=== PATIENT | male | born 1935 | race Caucasian/White ===

== ENCOUNTER 2017-05-08 13:00 | Inpatient (IN) | payer MEDICARE, OTHER ==
[~2017-05-08 13:00] MED LIST: Acetaminophen 500 MG Tab PO SCH; Famotidine 20 MG/2 ML SDV IVPUSH SCH; Ketorolac 30 MG/ML SDV IVPUSH SCH; Lactated Ringers 1,000 ML IV SCH; Ropivacaine 49.25 ML, Ketorolac 30 MG, EPINEPHrine 0.5 MG, cloNIDine 80 MCG in Sodium C... INJECT ONE; Scopolamine 1.5 MG Transdermal Patch TRDERM SCH; ceFAZolin 2 GM in Premix Bag 1 BAG IV SCH; oxyCODONE ER 20 MG TAB.ER PO SCH
[2017-06-19] MEDS ORDERED: oxyCODONE ER 20 MG TAB.ER PO SCH (06:00)
[2017-06-19] MEDS ORDERED: Famotidine 20 MG/2 ML SDV IVPUSH SCH (06:00)
[2017-06-19] MEDS ORDERED: Lactated Ringers 1,000 ML IV SCH (06:00)
[2017-06-19] MEDS ORDERED: Acetaminophen 1,000 MG in Premix Bag 1 BAG IV SCH (06:00)
[2017-06-19] MEDS ORDERED: Ropivacaine 49.25 ML, Ketorolac 30 MG, EPINEPHrine 0.5 MG, cloNIDine 80 MCG in Sodium C... INJECT ONE (06:00)
[2017-06-19] MEDS ORDERED: ceFAZolin 2 GM in Premix Bag 1 BAG IV SCH (06:00)
[2017-06-19] MEDS ORDERED: Scopolamine 1.5 MG Transdermal Patch TRDERM SCH (06:00)
[2017-06-19] MEDS ORDERED: Ketorolac 15 MG/ML SDV IVPUSH SCH (06:00)
--- NOTE | 2017-06-19 11:21 | PCM.OPNOTE ---
- General Post-Op/Procedure Note Date of Surgery/Procedure: 06/19/17 Operative Procedure(s): L TKA Post-Op Diagnosis: DJD left knee Anesthesia Technique: Moderate Sedation, Spinal Primary Surgeon: Christina Rausch Outsole Cementer: Raymond French Outsole Cementer: rTacy Thomson in mLs: 50 Condition: Good Free Text/Narrative:: tt=53 min #[id number]
[2017-06-19] MEDS ORDERED: Lidocaine 2% 5 ML SDV ONE (12:19)
[2017-06-19] MEDS ORDERED: Midazolam 1 MG/ML 2 ML SDV ONE (12:20)
[2017-06-19] MEDS ORDERED: Propofol 200 MG/20 ML SDV ONE (12:20)
[2017-06-19] MEDS ORDERED: fentaNYL 100 MCG/2 ML SDV ONE (12:20)
[2017-06-19] MEDS ORDERED: Ondansetron 4 MG/2 ML SDV ONE (12:20)
[2017-06-19] MEDS ORDERED: ePHEDrine 50 MG/ML SDV ONE (12:20)
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
[2017-06-19] MEDS ORDERED: Aluminum Hydroxide/Magnesium Hydroxide/Simethicone Susp 30 ML Cup PO PRN (14:20)
[2017-06-19] MEDS ORDERED: Ondansetron 4 MG/2 ML SDV IV PRN (14:20)
[2017-06-19] MEDS ORDERED: Bisacodyl 10 MG Supp RECTAL PRN (14:20)
[2017-06-19] MEDS ORDERED: diphenhydrAMINE 25 MG Cap PO PRN (14:20)
[2017-06-19] MEDS ORDERED: oxyCODONE 5 MG Tab PO PRN (14:21)
[2017-06-19] MEDS ORDERED: Morphine 4 MG/ML Syringe IVPUSH PRN (14:21)
[2017-06-19] MEDS ORDERED: fentaNYL 100 MCG/2 ML SDV IVPUSH PRN (14:53)
--- NOTE | 2017-06-19 15:18 | PCM.POSTAN ---
POST ANESTHESIA ASSESSMENT - MENTAL STATUS Mental Status: Alert, Oriented - VITAL SIGNS Pulse Rate: 60 SaO2: 97 Resp Rate: 14 Blood Pressure: 143/63 - RESPIRATORY Respiratory Status: Respiratory Rate WNL, Airway Patent, O2 Saturation Stable - CARDIOVASCULAR CV Status: Pulse Rate WNL, Blood Pressure Stable - GASTROINTESTINAL GI Status: No Symptoms - PAIN Pain Score: 0 - POST OP HYDRATION Hydration Status: Adequate & Stable - OBSERVATIONS Free Text/Narrative:: spinal level resolving
[2017-06-19 17:08] LABS: CHLORIDE,CL 107 mmol/L (98-110); SODIUM,NA 141 mmol/L (136-146)
[2017-06-19] MEDS ORDERED: Magnesium Sulfate/Water 4 GM in Premix Bag 1 BAG IV ONE (17:18)
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
[2017-06-19] MEDS ORDERED: Potassium Chloride 20 MEQ Tab.ER PO ONE (17:55)
[2017-06-19] MEDS ORDERED: Ketorolac 30 MG/ML SDV IVPUSH SCH (18:00)
[2017-06-19] MEDS: Acetaminophen 1,000 MG in Premix Bag 1 BAG IV SCH (18:10)
--- NOTE | 2017-06-19 19:05 | OR ---
SURGEON: Christina Rausch MD DATE OF PROCEDURE: 06/19/2017 PREOPERATIVE DIAGNOSIS: Degenerative joint disease, left knee, tricompartmental. POSTOPERATIVE DIAGNOSIS: Degenerative joint disease, left knee, tricompartmental. PROCEDURE: Left total knee arthroplasty using patient-specific instrumentation. CLIN NURSE: Raymond French PA-C and Tracy Thomson PA-C. ANESTHESIA: Spinal with sedation. ESTIMATED BLOOD LOSS: 50 mL. TOURNIQUET TIME: 53 minutes. COMPLICATIONS: None. DVT PROPHYLAXIS: PAS boot and MAXIMO hose to the nonoperative leg. IMPLANTS USED: Val NexGen femoral component size G (LPS), tibial component size 7, 10 mm all- polyethylene articular surface, and 38 mm all-polyethylene patella. FINDINGS: Intraoperative findings showed severe tricompartmental degenerative changes with varus deformity. Medial release was performed to obtain good balance to the knee. Osteophyte formation was also found. BRIEF HISTORY: Danae is an 81-year-old male, who has had complaint of progressive left knee pain. He has previously undergone a right total knee arthroplasty and has done well. Due to his lack of response to conservative treatment, I did recommend surgical intervention. The risks and goals of the procedure were discussed with the patient and were documented preoperatively. He agreed to proceed. DESCRIPTION OF PROCEDURE: The patient was properly identified and brought to the operating room. The patient was transferred from the operating room cart and placed on the operating room table. Spinal anesthesia was administered by the anesthesia team. After adequate sedation was achieved, a well-padded tourniquet was applied to the lower extremity. A Downing catheter was then placed. The lower extremity was then prepped in standard fashion using ChloraPrep solution. It was then sterilely draped. A time-out was performed to ensure correct site and procedure. Preoperative antibiotics were given along with one gram of tranexamic acid IV. The surgical site had been marked preoperatively. An Esmarch was used to exsanguinate the lower extremity and the tourniquet was inflated. An incision was made centered over the anterior aspect of the knee. The subcutaneous tissues were dissected down to the level of the fascia. A medial parapatellar approach was made. A partial medial release was also performed. The knee was then brought into extension and a portion of the infrapatellar fat pad was excised. The knee was then brought into flexion. The femoral patient specific cutting block was placed. This fit anatomically. The pins were then placed. The 0 degree distal femoral cutting guide was placed over the distal femur pins. The femur was then resected using an oscillating saw. The pins were then removed and were placed into the previously placed distal drill holes in the femoral condyles. Both Rodger's and the epicondylar axis were marked with electric cautery. The cutting block was then placed. This was pinned into position in a slightly lateral and externally rotated position. This was then secured. The resection guide was used to check to make sure that the anterior femoral cortex would not be notched. The anterior condylar cut was then made. No notching of the femur was noted. This was followed by the posterior condylar, posterior chamfer, and anterior chamfer cuts. The narrow reciprocating saw was then used to cut the base of the trochlear recess and score the edges. The finishing guide was then removed and the trochlear recess cuts and remaining bone cuts were finished. The notch cutting block was then placed into position and the notch cut was made without difficulty using the reciprocating saw. This was then removed. The notch block that had been cut along with a portion of the cruciate ligaments were also resected. We then turned our attention to the tibia. The posterior cruciate ligament retractor was used to bring the tibial surface anteriorly. The patient specific tibial block was then placed. This fit anatomically. It was pinned into position. The block was then removed. The 0 degree proximal tibia cutting guide was then placed over the guide pin. This was secured with a Sharath clamp. The resection depth was checked using the resection guide. A proximal tibia cut was then made using an oscillating saw. Care was taken to protect the patellar tendon. The proximal tibia bone was then removed. The remainder of the medial and lateral meniscus were also excised. Care was taken to protect the popliteus tendon. The proximal tibia was then sized. The remainder of the osteophytes along the proximal tibia were also resected. The distal femur was elevated to expose the posterior knee. The posterior capsule was stripped off of the distal femur using a curved osteotome. The posterior osteophytes were also excised. The posterior capsule, along with the medial and lateral gutters, were then injected with the standard, preoperatively prepared, mixture consisting of clonidine, epinephrine, ropivacaine, Toradol, and saline, unless any allergies were noted preoperatively. The femoral trial was then placed. This was followed by the tibial component with a size 10 trial polyethylene. The knee was brought into full extension. Stability to varus and valgus stress was checked in extension and in flexion. There appeared to be good range of motion and stability. The knee was then brought into full extension. The patella was everted. The patella was resected to a thickness of 15 millimeters. It was then sized. Once the appropriate size was determined, the patella was prepared by placing the patella button in a slightly superior and medial position. The patella button trial was then placed and the knee was again taken through a range of motion. There was excellent patellar tracking using the no-touch technique. Alignment was checked with a drop jose. The trial components were then removed. The knee was brought into full flexion and the tibia was prepared in a standard fashion placing the tibial plate in slight external rotation with the center of the prosthesis lined up with the medial aspect of the tibial tubercle. The wound was then copiously irrigated with Pulsavac solution to remove any bony debris. The bone ends were then suctioned dry. Cement was prepared in the usual fashion on the back table. The cement was then placed onto the proximal tibia and the tibial component was placed without difficulty. This was malleted into position. Excess cement was cleared. The femoral component was cemented in a similar manner. A trial polyethylene was then placed and the knee was brought into full extension. An axial load was applied. The patella button was then cemented into place and a patella clamp was placed to hold pressure. The cement was allowed to cure. The wound was again copiously irrigated with saline solution using a Pulsavac rn prior authorization. Following this 1 g of tranexamic acid was applied to the wound topically. After the cement had adequately hardened, the patella clamp was released. The knee was again taken through a range of motion. It was determined at this time the correct thickness of polyethylene. The trial polyethylene insert was then removed. The knee was brought into flexion and the tibial tray was suctioned dry. Any excess cement was cleared from the tibial and femoral components. The knee was then brought into approximately 45 degrees of flexion. The tourniquet was deflated. No excess bleeding was noted from the posterior aspect of the knee. An additional gram of tranexamic acid was given IV. The previously determined sized polyethylene insert was then placed and locked into position without difficulty. The knee was again taken through a range of motion with no change in stability, either in flexion or extension. The fascia layer was closed with No. 1 Vicryl. The subcutaneous tissue was closed with 2-0 Vicryl and the skin was closed with a dotty. Xeroform gauze was placed over the wound and a bulky dressing was applied. The patient was then awakened from the anesthetic and transferred back to the operating cart. The patient was brought to recovery room in stable condition. All needle and sponge counts were correct. MAITE / MARCOS /[id number]
[2017-06-19] MEDS: ceFAZolin 2 GM in Premix Bag 1 BAG IV SCH ×2 (20:48→23:00)
[2017-06-19] MEDS: Docusate Sodium 100 MG Cap PO SCH (20:51)
[2017-06-19] MEDS ORDERED: Lisinopril 10 MG Tab PO SCH (21:00)
[2017-06-19] MEDS ORDERED: amLODIPine 5 MG Tab PO SCH (21:00)
[2017-06-19] MEDS ORDERED: Latanoprost 0.005% Ophth Soln 2.5 ML Bottle EYEBOTH SCH (21:00)
[2017-06-20] MEDS: Acetaminophen 1,000 MG in Premix Bag 1 BAG IV SCH (00:18)
[2017-06-20] MEDS ORDERED: ceFAZolin 2 GM in Premix Bag 1 BAG IV SCH (05:00)
[2017-06-20 05:43] LABS: CHLORIDE,CL 108 mmol/L (98-110); SODIUM,NA 140 mmol/L (136-146)
[2017-06-20] MEDS: Acetaminophen 500 MG Tab PO SCH ×2 (06:34→11:14)
[2017-06-20] MEDS ORDERED: Timolol Maleate 0.5% Ophth Soln 15 ML Bottle EYEBOTH SCH (08:00)
[2017-06-20] MEDS ORDERED: Sodium Chloride 0.9% 10 ML Syringe FLUSH PRN (08:41)
[2017-06-20] MEDS ORDERED: Sodium Chloride 0.9% 2.5 ML Syringe FLUSH PRN (08:41)
[2017-06-20 08:43] VITALS: BP 122/50
--- NOTE | 2017-06-20 08:57 | PCM.SURGPN ---
- General Info Date of Service: 06/20/17 Date of Surgery/Procedure: 06/19/17 POD#: 1 Functional Status: Reports: Pain Controlled, Tolerating Diet, Ambulating, Urinating - Review of Systems General: Reports: No Symptoms Pulmonary: Reports: No Symptoms Cardiovascular: Reports: No Symptoms Gastrointestinal: Reports: No Symptoms Genitourinary: Reports: No Symptoms Musculoskeletal: Reports: Leg Pain, Joint Pain, Joint Swelling Neurological: Reports: No Symptoms Psychiatric: Reports: No Symptoms - Patient Data Vitals - Most Recent: Last Vital Signs Temp 36.4 C 06/20/17 08:00 Pulse 58 L 06/20/17 08:00 Resp 16 06/20/17 08:00 BP 122/50 L 06/20/17 08:00 Pulse Ox 93 L 06/20/17 08:00 Weight - Most Recent: 97.522 kg I&O - Last 24 Hours: Intake & Output 06/19/17 06/20/17 06/20/17 22:59 06:59 14:59 Intake Total 2450 750 Output Total 190 550 Balance 2260 200 Lab Results Last 24 Hrs: Laboratory Results - last 24 hr 06/19/17 06/19/17 06/19/17 Range/Units 11:00 16:42 16:42 WBC 9.60 (4.0-11.0) K/uL RBC 4.02 L (4.50-5.90) M/uL Hgb 12.5 L (13.0-17.0) g/dL Hct 36.7 L (38.0-50.0) % MCV 91.3 (80.0-98.0) fL MCH 31.1 (27.0-32.0) pg MCHC 34.1 (31.0-37.0) g/dL RDW Std Deviation 44.5 (28.0-62.0) fl RDW Coeff of Antonette 14 (11.0-15.0) % Plt Count 227 (150-400) K/uL MPV 11.50 (7.40-12.00) fL Neut % (Auto) 60.5 (48.0-80.0) % Lymph % (Auto) 28.9 (16.0-40.0) % Davison % (Auto) 7.9 (0.0-15.0) % Eos % (Auto) 2.6 (0.0-7.0) % Baso % (Auto) 0.1 (0.0-1.5) % Neut # (Auto) 5.8 H (1.4-5.7) K/uL Lymph # (Auto) 2.8 H (0.6-2.4) K/uL Davison # (Auto) 0.8 (0.0-0.8) K/uL Eos # (Auto) 0.3 (0.0-0.7) K/uL Baso # (Auto) 0.0 (0.0-0.1) K/uL Nucleated RBC % 0.0 /100WBC Nucleated RBCs # 0 K/uL Sodium 141 (136-146) mmol/L Potassium 3.8 (3.5-5.1) mmol/L Chloride 107 (98-110) mmol/L Carbon Dioxide 26 (21-31) mmol/L BUN 14 (6.0-23.0) mg/dL Creatinine 0.8 (0.6-1.5) mg/dL Est Cr Clr Drug Dosing 74.66 mL/min Estimated GFR (MDRD) > 60.0 ml/min Glucose 98 (60-110) mg/dL Calcium 8.6 L (8.8-10.8) mg/dL Magnesium 1.4 L (1.5-2.3) mEq/L Total Bilirubin 0.5 (0.1-1.5) mg/dL AST 16 (5-40) IU/L ALT 11 (8-54) IU/L Alkaline Phosphatase 78 (40-150) Total Protein 6.9 (6.0-8.0) g/dL Albumin 3.4 (3.4-4.8) g/dL Globulin 3.5 (2.0-3.5) g/dL Albumin/Globulin Ratio 1.0 L (1.3-2.8) Blood Type A POSITIVE Antibody Screen NEGATIVE 06/20/17 06/20/17 Range/Units 05:19 05:19 WBC (4.0-11.0) K/uL RBC (4.50-5.90) M/uL Hgb 12.1 L (13.0-17.0) g/dL Hct 35.9 L (38.0-50.0) % MCV (80.0-98.0) fL MCH (27.0-32.0) pg MCHC (31.0-37.0) g/dL RDW Std Deviation (28.0-62.0) fl RDW Coeff of Antonette (11.0-15.0) % Plt Count (150-400) K/uL MPV (7.40-12.00) fL Neut % (Auto) (48.0-80.0) % Lymph % (Auto) (16.0-40.0) % Davison % (Auto) (0.0-15.0) % Eos % (Auto) (0.0-7.0) % Baso % (Auto) (0.0-1.5) % Neut # (Auto) (1.4-5.7) K/uL Lymph # (Auto) (0.6-2.4) K/uL Davison # (Auto) (0.0-0.8) K/uL Eos # (Auto) (0.0-0.7) K/uL Baso # (Auto) (0.0-0.1) K/uL Nucleated RBC % /100WBC Nucleated RBCs # K/uL Sodium 140 (136-146) mmol/L Potassium 4.1 (3.5-5.1) mmol/L Chloride 108 (98-110) mmol/L Carbon Dioxide 24 (21-31) mmol/L BUN 18 (6.0-23.0) mg/dL Creatinine 1.1 (0.6-1.5) mg/dL Est Cr Clr Drug Dosing 54.30 mL/min Estimated GFR (MDRD) > 60.0 ml/min Glucose 106 (60-110) mg/dL Calcium 8.4 L (8.8-10.8) mg/dL Magnesium 2.1 (1.5-2.3) mEq/L Total Bilirubin (0.1-1.5) mg/dL AST (5-40) IU/L ALT (8-54) IU/L Alkaline Phosphatase (40-150) Total Protein (6.0-8.0) g/dL Albumin (3.4-4.8) g/dL Globulin (2.0-3.5) g/dL Albumin/Globulin Ratio (1.3-2.8) Blood Type Antibody Screen Med Orders - Current: Current Medications Acetaminophen (Tylenol Extra Strength) 1,000 mg PO Q6H [facility] Last Admin: 06/20/17 06:34 Dose: 1,000 mg Al Hydroxide/Mg Hydroxide (Mag-Al Plus) 30 ml PO Q4H PRN PRN Reason: indigestion Amlodipine Besylate (Norvasc) 10 mg PO BEDTIME [facility] Last Admin: 06/19/17 21:50 Dose: 10 mg Aspirin (Aspirin) 325 mg PO BID [facility] Bisacodyl (Dulcolax) 10 mg RECTAL DAILY PRN PRN Reason: Constipation Diphenhydramine HCl (Benadryl) 25 - 50 mg PO Q6H PRN PRN Reason: Itching Docusate Sodium (Colace) 100 mg PO BID [facility] Last Admin: 06/19/17 20:51 Dose: 100 mg Fentanyl (Sublimaze) 50 mcg IVPUSH Q5M PRN PRN Reason: Pain (severe 7-10) Stop: 06/20/17 14:53 Latanoprost (Xalatan 0.005% Ophth Soln) 0 ml EYEBOTH BEDTIME [facility] Last Admin: 06/19/17 20:50 Dose: 1 drop Lisinopril (Prinivil) 20 mg PO BEDTIME [facility] Last Admin: 06/19/17 21:49 Dose: 20 mg Morphine Sulfate (Morphine) 1 - 3 mg IVPUSH Q3H PRN PRN Reason: Pain Ondansetron HCl (Zofran) 4 mg IV Q6HR PRN PRN Reason: NAUSEA/VOMITING Oxycodone HCl (Oxycodone) 5 - 10 mg PO Q4H PRN PRN Reason: Pain Scopolamine (Transderm-Scop) 1.5 mg TRDERM ONARRIVE [facility] Last Admin: 06/19/17 11:22 Dose: 1.5 mg Sodium Chloride (Saline Flush) 10 ml FLUSH ASDIRECTED PRN PRN Reason: Keep Vein Open Sodium Chloride (Saline Flush) 2.5 ml FLUSH ASDIRECTED PRN PRN Reason: Keep Vein Open Timolol Maleate (Timoptic 0.5% Ophth Soln) 0 ml EYEBOTH BRK [facility] Discontinued Medications Acetaminophen (Tylenol Extra Strength) 1,000 mg PO ONARRIVE [facility] Celecoxib (Celebrex) 200 mg PO DAILY [facility] Ephedrine Sulfate (Ephedrine Sulfate) Confirm Administered Dose 100 mg .ROUTE .STK-MED ONE Stop: 06/19/17 12:21 Famotidine (Pepcid) 40 mg IVPUSH ONARRIVE [facility] Famotidine (Pepcid) 40 mg IVPUSH ONARRIVE SHO Stop: 06/19/17 15:00 Last Admin: 06/19/17 11:24 Dose: 40 mg Fentanyl (Sublimaze) Confirm Administered Dose 200 mcg .ROUTE .STK-MED ONE Stop: 06/19/17 12:21 Cefazolin Sodium/Dextrose 2 gm (/ Premix) 50 mls @ 100 mls/hr IV ONCALL [facility] Ropivacaine 49.25 ml/Ketorolac Tromethamine 30 mg/Epinephrine HCl 0.5 mg/ Clonidine HCl 80 mcg/ Sodium Chloride 100 mls @ 50 mls/min INJECT ONETIME ONE Stop: 05/08/17 06:01 Lactated Ringer's (Ringers, Lactated) 1,000 mls @ 100 mls/hr IV ASDIRECTED [facility] Cefazolin Sodium/Dextrose 2 gm (/ Premix) 50 mls @ 100 mls/hr IV ONCALL [facility] Stop: 06/19/17 15:00 Ropivacaine 49.25 ml/Ketorolac Tromethamine 30 mg/Epinephrine HCl 0.5 mg/ Clonidine HCl 80 mcg/ Sodium Chloride 100 mls @ 50 mls/min INJECT ONETIME ONE Stop: 06/19/17 06:01 Last Admin: 06/19/17 18:23 Dose: Not Given Lactated Ringer's (Ringers, Lactated) 1,000 mls @ 100 mls/hr IV ASDIRECTED [facility] Last Admin: 06/19/17 11:21 Dose: 100 mls/hr Acetaminophen 1,000 mg/ Premix 100 mls @ 400 mls/hr IV ONCALL [facility] Last Admin: 06/19/17 11:20 Dose: 400 mls/hr Cefazolin Sodium/Dextrose 2 gm (/ Premix) 50 mls @ 100 mls/hr IV Q8HR [facility] Stop: 06/19/17 22:29 Last Admin: 06/19/17 23:00 Dose: Not Given Acetaminophen 1,000 mg/ Premix 100 mls @ 400 mls/hr IV Q6H [facility] Stop: 06/20/17 00:14 Last Admin: 06/20/17 00:18 Dose: 400 mls/hr Magnesium Sulfate 4 gm/ Premix 100 mls @ 50 mls/hr IV ONETIME ONE Stop: 06/19/17 19:17 Last Infusion: 06/19/17 20:35 Dose: Infused Cefazolin Sodium/Dextrose 2 gm (/ Premix) 50 mls @ 100 mls/hr IV Q8HR [facility] Stop: 06/20/17 05:29 Last Infusion: 06/20/17 04:50 Dose: Infused Acetaminophen (Ofirmev) Confirm Administered Dose 100 mls @ as directed IV .STK- MED ONE Stop: 06/19/17 23:31 Ketorolac Tromethamine (Toradol) 30 mg IVPUSH ONARRIVE SHO Ketorolac Tromethamine (Toradol) 15 mg IVPUSH ONARRIVE SHO Stop: 06/19/17 15:00 Last Admin: 06/19/17 11:24 Dose: 15 mg Ketorolac Tromethamine (Toradol) 30 mg IVPUSH Q6H [facility] Stop: 06/20/17 09:00 Lidocaine (Xylocaine-Mpf 2%) Confirm Administered Dose 10 ml .ROUTE .STK-MED ONE Stop: 06/19/17 12:20 Metoprolol Succinate (Toprol Xl) 25 mg PO DAILY [facility] Midazolam HCl (Versed 1 Mg/Ml) Confirm Administered Dose 2 mg .ROUTE .STK-MED ONE Stop: 06/19/17 12:21 Ondansetron HCl (Zofran) Confirm Administered Dose 4 mg .ROUTE .STK-MED ONE Stop: 06/19/17 12:21 Oxycodone HCl (Oxycontin) 20 mg PO ONARRIVE SHO Oxycodone HCl (Oxycontin) 20 mg PO ONARRIVE SHO Stop: 06/19/17 15:00 Last Admin: 06/19/17 11:25 Dose: 20 mg Potassium Chloride (Klor-Con M20) 40 meq PO ONETIME ONE Stop: 06/19/17 17:56 Last Admin: 06/19/17 18:10 Dose: 40 meq Propofol (Diprivan 20 Ml) Confirm Administered Dose 400 mg .ROUTE .STK-MED ONE Stop: 06/19/17 12:21 Scopolamine (Transderm-Scop) 1.5 mg TRDERM ONARRIVE SHO Tranexamic Acid (Cyklokapron) 4,000 mg IV SEECOMMENT [facility] Tranexamic Acid (Cyklokapron) 4,000 mg IV SEECOMMENT [facility] Stop: 06/19/17 15:00 Tranexamic Acid (Cyklokapron) Confirm Administered Dose 4,000 mg .ROUTE .CrossReader- MED ONE Stop: 06/19/17 07:19 - Exam Wound/Incisions: Dressing Dry and Intact General: Alert, Oriented HEENT: Pupils Equal, Pupils Reactive Neck: Trachea Midline Lungs: Normal Respiratory Effort Cardiovascular: Regular Rate Extremities: Other (Left anterior tibialis, extensor hallucis longus and gastrocnemius strength +5/5 bilaterally. Sensation intact. Dorsalis pedis and posterior tibial pulses +2 bilaterally. ) Neurological: No New Focal Deficit Psy/Mental Status: Alert, Normal Affect, Normal Mood - Problem List Review Problem List Initiated/Reviewed/Updated: Yes - My Orders Last 24 Hours: Active Orders 24 hr Category Date Time Status Patient Status [ADT] Routine ADT 06/19/17 11:21 Active Activity as Tolerated [RC] .Routine Care 06/19/17 14:20 Active Intake and Output [RC] Q12H Care 06/19/17 14:20 Active Neurovascular Check [RC] Q2HR Care 06/19/17 14:20 Active Notify Provider Consults [RC] ASDIRECTED Care 06/19/17 14:28 Active Notify Provider Vital Signs [RC] ASDIRECTED Care 06/19/17 14:20 Active RT Incentive Spirometry [RC] ASDIRECTED Care 06/19/17 14:20 Active Telemetry Monitoring [Cardiac Monitoring] [RC] Q8H Care 06/19/17 14:34 Active Urinary Catheter Removal [RC] Per Unit Routine Care 06/20/17 08:41 Active Vital Signs [RC] Q4H Care 06/19/17 14:20 Active Consult to Physician [CONS] Routine Cons 06/19/17 14:28 Active PT Evaluation and Treatment [CONS] Routine Cons 06/19/17 14:20 Active Knee 1V or 2V Lt [CR] Routine Exams 06/19/17 14:52 Taken BMP [BASIC METABOLIC PANEL,BMP] [CHEM] AM Lab 06/21/17 05:11 Ordered HEMOGLOBIN/HEMATOCRIT,HH [HEME] DAILY Lab 06/21/17 07:00 Ordered HEMOGLOBIN/HEMATOCRIT,HH [HEME] DAILY Lab 06/22/17 07:00 Ordered MAGNESIUM [CHEM] AM Lab 06/21/17 05:11 Ordered Acetaminophen [Tylenol Extra Strength] Med 06/20/17 06:00 Active 1,000 mg PO Q6H Alum Hydrox/Mag Hydrox/Simeth [Mag-Al Plus] Med 06/19/17 14:20 Active 30 ml PO Q4H PRN Aspirin Med 06/20/17 09:00 Active 325 mg PO BID Bisacodyl [Dulcolax] Med 06/19/17 14:20 Active 10 mg RECTAL DAILY PRN Docusate Sodium [Colace] Med 06/19/17 21:00 Active 100 mg PO BID Latanoprost [Xalatan 0.005% Ophth Soln] Med 06/19/17 21:00 Active 0 ml EYEBOTH BEDTIME Lisinopril [Prinivil] Med 06/19/17 21:00 Active 20 mg PO BEDTIME Morphine Med 06/19/17 14:21 Active 1 - 3 mg IVPUSH Q3H PRN Ondansetron [Zofran] Med 06/19/17 14:20 Active 4 mg IV Q6HR PRN Sodium Chloride 0.9% [Saline Flush] Med 06/20/17 08:41 Active 10 ml FLUSH ASDIRECTED PRN Sodium Chloride 0.9% [Saline Flush] Med 06/20/17 08:41 Active 2.5 ml FLUSH ASDIRECTED PRN Timolol Maleate [Timoptic 0.5% Ophth Soln] Med 06/20/17 08:00 Active 0 ml EYEBOTH BRK amLODIPine [Norvasc] Med 06/19/17 21:00 Active 10 mg PO BEDTIME diphenhydrAMINE [Benadryl] Med 06/19/17 14:20 Active 25 - 50 mg PO Q6H PRN fentaNYL [Sublimaze] Med 06/19/17 14:53 Active 50 mcg IVPUSH Q5M PRN oxyCODONE Med 06/19/17 14:21 Active 5 - 10 mg PO Q4H PRN Convert IV to Saline Lock [OM.PC] Routine Oth 06/20/17 08:41 Ordered Ice Therapy [OM.PC] Routine Oth 06/19/17 14:20 Ordered Medication Orders Acetaminophen (Tylenol Extra Strength) 1,000 mg PO Q6H [facility] Last Admin: 06/20/17 06:34 Dose: 1,000 mg Al Hydroxide/Mg Hydroxide (Mag-Al Plus) 30 ml PO Q4H PRN PRN Reason: indigestion Amlodipine Besylate (Norvasc) 10 mg PO BEDTIME [facility] Last Admin: 06/19/17 21:50 Dose: 10 mg Aspirin (Aspirin) 325 mg PO BID [facility] Bisacodyl (Dulcolax) 10 mg RECTAL DAILY PRN PRN Reason: Constipation Diphenhydramine HCl (Benadryl) 25 - 50 mg PO Q6H PRN PRN Reason: Itching Docusate Sodium (Colace) 100 mg PO BID [facility] Last Admin: 06/19/17 20:51 Dose: 100 mg Fentanyl (Sublimaze) 50 mcg IVPUSH Q5M PRN PRN Reason: Pain (severe 7-10) Stop: 06/20/17 14:53 Latanoprost (Xalatan 0.005% Ophth Soln) 0 ml EYEBOTH BEDTIME [facility] Last Admin: 06/19/17 20:50 Dose: 1 drop Lisinopril (Prinivil) 20 mg PO BEDTIME [facility] Last Admin: 06/19/17 21:49 Dose: 20 mg Morphine Sulfate (Morphine) 1 - 3 mg IVPUSH Q3H PRN PRN Reason: Pain Ondansetron HCl (Zofran) 4 mg IV Q6HR PRN PRN Reason: NAUSEA/VOMITING Oxycodone HCl (Oxycodone) 5 - 10 mg PO Q4H PRN PRN Reason: Pain Scopolamine (Transderm-Scop) 1.5 mg TRDERM ONARRIVE [facility] Last Admin: 06/19/17 11:22 Dose: 1.5 mg Sodium Chloride (Saline Flush) 10 ml FLUSH ASDIRECTED PRN PRN Reason: Keep Vein Open Sodium Chloride (Saline Flush) 2.5 ml FLUSH ASDIRECTED PRN PRN Reason: Keep Vein Open Timolol Maleate (Timoptic 0.5% Ophth Soln) 0 ml EYEBOTH BRK [facility] - Assessment Assessment (Free Text/Narrative):: Patient up to chair this AM. Pain well controlled. Tolerating diet. Patient did have decreased HR while sleeping last night. He was not symptomatic. Hospitalist was notified. VSS. Hgb 12.1. UO 990 mL. - Plan Plan (Free Text/Narrative):: Continue pain management. Continue PT. Discontinue duran and LRs. Encourage PO fluid intake. Start Aspirin 325 mg PO BID for DVT prophylaxis. Discharge home this afternoon.
[2017-06-20] MEDS ORDERED: Metoprolol Succinate 25 MG Tab.ER PO SCH (09:00)
[2017-06-20] MEDS ORDERED: Celecoxib 100 MG Cap PO SCH (09:00)
[2017-06-20] MEDS ORDERED: Aspirin 325 MG Tab PO SCH (09:00)
[2017-06-20] MEDS: Docusate Sodium 100 MG Cap PO SCH (09:08)
--- NOTE | 2017-06-20 09:15 | CR ---
EXAMINATION: Left knee HISTORY: Postoperative COMPARISON: 04/13/2017 TECHNIQUE: 2 views FINDINGS/IMPRESSION: Left total knee hardware is demonstrated in good position and alignment. Postope rative soft tissue changes are noted.
--- NOTE | 2017-06-20 09:29 | PCM.CONSN ---
- General Info Date of Service: 06/20/17 Admission Dx/Problem (Free Text): Admission Diagnosis/Problem Admission Diagnosis/Problem Replacement of total knee joint Subjective Update: Sitting up in the chair this morning alert and oriented. Pain is well controlled. Denies chest pain or SOB. Has no other concerns except for wanting to go home. Functional Status: Reports: Pain Controlled, Tolerating Diet, Ambulating, Urinating - Review of Systems Pulmonary: Reports: No Symptoms. Denies: Shortness of Breath, Cough, Sputum Cardiovascular: Reports: No Symptoms. Denies: Chest Pain, Edema Gastrointestinal: Reports: No Symptoms. Denies: Abdominal Pain, Nausea, Vomiting Neurological: Reports: No Symptoms. Denies: Confusion - Patient Data Vitals - Most Recent: Last Vital Signs Temp 97.5 F 06/20/17 08:00 Pulse 58 L 06/20/17 08:00 Resp 16 06/20/17 08:00 BP 122/50 L 06/20/17 08:00 Pulse Ox 93 L 06/20/17 08:00 Weight - Most Recent: 97.522 kg I&O - Last 24 Hours: Intake & Output 06/19/17 06/20/17 06/20/17 22:59 06:59 14:59 Intake Total 2450 750 Output Total 190 550 Balance 2260 200 Lab Results Last 24 Hours: Laboratory Results - last 24 hr 06/19/17 06/19/17 06/19/17 Range/Units 11:00 16:42 16:42 WBC 9.60 (4.0-11.0) K/uL RBC 4.02 L (4.50-5.90) M/uL Hgb 12.5 L (13.0-17.0) g/dL Hct 36.7 L (38.0-50.0) % MCV 91.3 (80.0-98.0) fL MCH 31.1 (27.0-32.0) pg MCHC 34.1 (31.0-37.0) g/dL RDW Std Deviation 44.5 (28.0-62.0) fl RDW Coeff of Antonette 14 (11.0-15.0) % Plt Count 227 (150-400) K/uL MPV 11.50 (7.40-12.00) fL Neut % (Auto) 60.5 (48.0-80.0) % Lymph % (Auto) 28.9 (16.0-40.0) % [place] % (Auto) 7.9 (0.0-15.0) % Eos % (Auto) 2.6 (0.0-7.0) % Baso % (Auto) 0.1 (0.0-1.5) % Neut # (Auto) 5.8 H (1.4-5.7) K/uL Lymph # (Auto) 2.8 H (0.6-2.4) K/uL [place] # (Auto) 0.8 (0.0-0.8) K/uL Eos # (Auto) 0.3 (0.0-0.7) K/uL Baso # (Auto) 0.0 (0.0-0.1) K/uL Nucleated RBC % 0.0 /100WBC Nucleated RBCs # 0 K/uL Sodium 141 (136-146) mmol/L Potassium 3.8 (3.5-5.1) mmol/L Chloride 107 (98-110) mmol/L Carbon Dioxide 26 (21-31) mmol/L BUN 14 (6.0-23.0) mg/dL Creatinine 0.8 (0.6-1.5) mg/dL Est Cr Clr Drug Dosing 74.66 mL/min Estimated GFR (MDRD) > 60.0 ml/min Glucose 98 (60-110) mg/dL Calcium 8.6 L (8.8-10.8) mg/dL Magnesium 1.4 L (1.5-2.3) mEq/L Total Bilirubin 0.5 (0.1-1.5) mg/dL AST 16 (5-40) IU/L ALT 11 (8-54) IU/L Alkaline Phosphatase 78 (40-150) Total Protein 6.9 (6.0-8.0) g/dL Albumin 3.4 (3.4-4.8) g/dL Globulin 3.5 (2.0-3.5) g/dL Albumin/Globulin Ratio 1.0 L (1.3-2.8) Blood Type A POSITIVE Antibody Screen NEGATIVE 06/20/17 06/20/17 Range/Units 05:19 05:19 WBC (4.0-11.0) K/uL RBC (4.50-5.90) M/uL Hgb 12.1 L (13.0-17.0) g/dL Hct 35.9 L (38.0-50.0) % MCV (80.0-98.0) fL MCH (27.0-32.0) pg MCHC (31.0-37.0) g/dL RDW Std Deviation (28.0-62.0) fl RDW Coeff of Antonette (11.0-15.0) % Plt Count (150-400) K/uL MPV (7.40-12.00) fL Neut % (Auto) (48.0-80.0) % Lymph % (Auto) (16.0-40.0) % [place] % (Auto) (0.0-15.0) % Eos % (Auto) (0.0-7.0) % Baso % (Auto) (0.0-1.5) % Neut # (Auto) (1.4-5.7) K/uL Lymph # (Auto) (0.6-2.4) K/uL [place] # (Auto) (0.0-0.8) K/uL Eos # (Auto) (0.0-0.7) K/uL Baso # (Auto) (0.0-0.1) K/uL Nucleated RBC % /100WBC Nucleated RBCs # K/uL Sodium 140 (136-146) mmol/L Potassium 4.1 (3.5-5.1) mmol/L Chloride 108 (98-110) mmol/L Carbon Dioxide 24 (21-31) mmol/L BUN 18 (6.0-23.0) mg/dL Creatinine 1.1 (0.6-1.5) mg/dL Est Cr Clr Drug Dosing 54.30 mL/min Estimated GFR (MDRD) > 60.0 ml/min Glucose 106 (60-110) mg/dL Calcium 8.4 L (8.8-10.8) mg/dL Magnesium 2.1 (1.5-2.3) mEq/L Total Bilirubin (0.1-1.5) mg/dL AST (5-40) IU/L ALT (8-54) IU/L Alkaline Phosphatase (40-150) Total Protein (6.0-8.0) g/dL Albumin (3.4-4.8) g/dL Globulin (2.0-3.5) g/dL Albumin/Globulin Ratio (1.3-2.8) Blood Type Antibody Screen Med Orders - Current: Current Medications Acetaminophen (Tylenol Extra Strength) 1,000 mg PO Q6H [facility] Last Admin: 06/20/17 06:34 Dose: 1,000 mg Al Hydroxide/Mg Hydroxide (Mag-Al Plus) 30 ml PO Q4H PRN PRN Reason: indigestion Amlodipine Besylate (Norvasc) 10 mg PO BEDTIME [facility] Last Admin: 06/19/17 21:50 Dose: 10 mg Aspirin (Aspirin) 325 mg PO BID [facility] Last Admin: 06/20/17 09:08 Dose: 325 mg Bisacodyl (Dulcolax) 10 mg RECTAL DAILY PRN PRN Reason: Constipation Diphenhydramine HCl (Benadryl) 25 - 50 mg PO Q6H PRN PRN Reason: Itching Docusate Sodium (Colace) 100 mg PO BID [facility] Last Admin: 06/20/17 09:08 Dose: 100 mg Fentanyl (Sublimaze) 50 mcg IVPUSH Q5M PRN PRN Reason: Pain (severe 7-10) Stop: 06/20/17 14:53 Latanoprost (Xalatan 0.005% Ophth Soln) 0 ml EYEBOTH BEDTIME [facility] Last Admin: 06/19/17 20:50 Dose: 1 drop Lisinopril (Prinivil) 20 mg PO BEDTIME [facility] Last Admin: 06/19/17 21:49 Dose: 20 mg Morphine Sulfate (Morphine) 1 - 3 mg IVPUSH Q3H PRN PRN Reason: Pain Ondansetron HCl (Zofran) 4 mg IV Q6HR PRN PRN Reason: NAUSEA/VOMITING Oxycodone HCl (Oxycodone) 5 - 10 mg PO Q4H PRN PRN Reason: Pain Scopolamine (Transderm-Scop) 1.5 mg TRDERM ONARRIVE [facility] Last Admin: 06/19/17 11:22 Dose: 1.5 mg Sodium Chloride (Saline Flush) 10 ml FLUSH ASDIRECTED PRN PRN Reason: Keep Vein Open Sodium Chloride (Saline Flush) 2.5 ml FLUSH ASDIRECTED PRN PRN Reason: Keep Vein Open Timolol Maleate (Timoptic 0.5% Ophth Soln) 0 ml EYEBOTH BRK [facility] Last Admin: 06/20/17 09:08 Dose: 1 drop Discontinued Medications Acetaminophen (Tylenol Extra Strength) 1,000 mg PO ONARRIVE [facility] Celecoxib (Celebrex) 200 mg PO DAILY [facility] Ephedrine Sulfate (Ephedrine Sulfate) Confirm Administered Dose 100 mg .ROUTE .STK-MED ONE Stop: 06/19/17 12:21 Famotidine (Pepcid) 40 mg IVPUSH ONARRIVE [facility] Famotidine (Pepcid) 40 mg IVPUSH ONARRIVE [facility] Stop: 06/19/17 15:00 Last Admin: 06/19/17 11:24 Dose: 40 mg Fentanyl (Sublimaze) Confirm Administered Dose 200 mcg .ROUTE .STK-MED ONE Stop: 06/19/17 12:21 Cefazolin Sodium/Dextrose 2 gm (/ Premix) 50 mls @ 100 mls/hr IV ONCALL [facility] Ropivacaine 49.25 ml/Ketorolac Tromethamine 30 mg/Epinephrine HCl 0.5 mg/ Clonidine HCl 80 mcg/ Sodium Chloride 100 mls @ 50 mls/min INJECT ONETIME ONE Stop: 05/08/17 06:01 Lactated Ringer's (Ringers, Lactated) 1,000 mls @ 100 mls/hr IV ASDIRECTED [facility] Cefazolin Sodium/Dextrose 2 gm (/ Premix) 50 mls @ 100 mls/hr IV ONCALL [facility] Stop: 06/19/17 15:00 Ropivacaine 49.25 ml/Ketorolac Tromethamine 30 mg/Epinephrine HCl 0.5 mg/ Clonidine HCl 80 mcg/ Sodium Chloride 100 mls @ 50 mls/min INJECT ONETIME ONE Stop: 06/19/17 06:01 Last Admin: 06/19/17 18:23 Dose: Not Given Lactated Ringer's (Ringers, Lactated) 1,000 mls @ 100 mls/hr IV ASDIRECTED [facility] Last Admin: 06/19/17 11:21 Dose: 100 mls/hr Acetaminophen 1,000 mg/ Premix 100 mls @ 400 mls/hr IV ONCALL [facility] Last Admin: 06/19/17 11:20 Dose: 400 mls/hr Cefazolin Sodium/Dextrose 2 gm (/ Premix) 50 mls @ 100 mls/hr IV Q8HR [facility] Stop: 06/19/17 22:29 Last Admin: 06/19/17 23:00 Dose: Not Given Acetaminophen 1,000 mg/ Premix 100 mls @ 400 mls/hr IV Q6H [facility] Stop: 06/20/17 00:14 Last Admin: 06/20/17 00:18 Dose: 400 mls/hr Magnesium Sulfate 4 gm/ Premix 100 mls @ 50 mls/hr IV ONETIME ONE Stop: 06/19/17 19:17 Last Infusion: 06/19/17 20:35 Dose: Infused Cefazolin Sodium/Dextrose 2 gm (/ Premix) 50 mls @ 100 mls/hr IV Q8HR [facility] Stop: 06/20/17 05:29 Last Infusion: 06/20/17 04:50 Dose: Infused Acetaminophen (Ofirmev) Confirm Administered Dose 100 mls @ as directed IV .STK- MED ONE Stop: 06/19/17 23:31 Ketorolac Tromethamine (Toradol) 30 mg IVPUSH ONARRIVE [facility] Ketorolac Tromethamine (Toradol) 15 mg IVPUSH ONARRIVE [facility] Stop: 06/19/17 15:00 Last Admin: 06/19/17 11:24 Dose: 15 mg Ketorolac Tromethamine (Toradol) 30 mg IVPUSH Q6H [facility] Stop: 06/20/17 09:00 Lidocaine (Xylocaine-Mpf 2%) Confirm Administered Dose 10 ml .ROUTE .STK-MED ONE Stop: 06/19/17 12:20 Metoprolol Succinate (Toprol Xl) 25 mg PO DAILY [facility] Midazolam HCl (Versed 1 Mg/Ml) Confirm Administered Dose 2 mg .ROUTE .STK-MED ONE Stop: 06/19/17 12:21 Ondansetron HCl (Zofran) Confirm Administered Dose 4 mg .ROUTE .STK-MED ONE Stop: 06/19/17 12:21 Oxycodone HCl (Oxycontin) 20 mg PO ONARRIVE [facility] Oxycodone HCl (Oxycontin) 20 mg PO ONARRIVE [facility] Stop: 06/19/17 15:00 Last Admin: 06/19/17 11:25 Dose: 20 mg Potassium Chloride (Klor-Con M20) 40 meq PO ONETIME ONE Stop: 06/19/17 17:56 Last Admin: 06/19/17 18:10 Dose: 40 meq Propofol (Diprivan 20 Ml) Confirm Administered Dose 400 mg .ROUTE .STK-MED ONE Stop: 06/19/17 12:21 Scopolamine (Transderm-Scop) 1.5 mg TRDERM ONARRIVE [facility] Tranexamic Acid (Cyklokapron) 4,000 mg IV SEECOMMENT SHO Tranexamic Acid (Cyklokapron) 4,000 mg IV SEECOMMENT SHO Stop: 06/19/17 15:00 Tranexamic Acid (Cyklokapron) Confirm Administered Dose 4,000 mg .ROUTE .STK- MED ONE Stop: 06/19/17 07:19 - Exam General: Alert, Oriented, Cooperative, No Acute Distress Lungs: Clear to Auscultation, Normal Respiratory Effort Cardiovascular: Regular Rate, Irregular Rhythm GI/Abdominal Exam: Normal Bowel Sounds, Soft, Non-Tender, No Organomegaly, No Distention, No Abnormal Bruit, No Mass, Pelvis Stable Extremities: Normal Inspection, Normal Range of Motion, Non-Tender, No Pedal Edema, Normal Capillary Refill Wound/Incisions: Dressing Dry and Intact (L TKA incision) Neurological: No New Focal Deficit Psy/Mental Status: Alert, Normal Affect, Normal Mood Consult PN Assessment/Plan Procedures: Procedures BLOOD TYPING SEROLOGIC ABO (12/08/14) BLOOD TYPING SEROLOGIC RH(D) (12/08/14) CARDIOVASCULAR STRESS TEST (05/03/17) DECALCIFY TISSUE (12/08/14) ELECTROCARDIOGRAM TRACING (12/03/14) GAIT TRAINING THERAPY (12/08/14) HEMATOCRIT (12/08/14) HEMOGLOBIN (12/08/14) HOT OR COLD PACKS THERAPY (01/06/15) MRI JNT OF LWR EXTRE W/O DYE (04/13/17) OFFICE/OUTPATIENT VISIT NEW (12/03/14) OFFICE/OUTPATIENT VISIT NEW (10/21/14) PT EVALUATION (01/06/15) RBC ANTIBODY SCREEN (12/08/14) ROUTINE VENIPUNCTURE (12/08/14) THERAPEUTIC EXERCISES (01/06/15) TISSUE EXAM BY PATHOLOGIST (12/08/14) VASOPNEUMATIC DEVICE THERAPY (01/06/15) X-RAY EXAM KNEE 4 OR MORE (10/21/14) X-RAY EXAM OF KNEE 1 OR 2 (12/08/14) X-RAY EXAM OF KNEE 3 (12/18/14) (1) S/P total knee arthroplasty SNOMED Code(s): 5688368031585, 5584503121756 Code(s): Z96.659 - PRESENCE OF UNSPECIFIED ARTIFICIAL KNEE JOINT Current Visit: Yes (2) Hx of coronary artery disease SNOMED Code(s): 334053698 Code(s): Z86.79 - PERSONAL HISTORY OF OTHER DISEASES OF THE CIRCULATORY SYSTEM Current Visit: Yes (3) CHF (congestive heart failure) SNOMED Code(s): 94705077 Code(s): I50.9 - HEART FAILURE, UNSPECIFIED Current Visit: Yes Qualifiers: Congestive heart failure type: systolic Congestive heart failure chronicity : chronic Qualified Code(s): I50.22 - Chronic systolic (congestive) heart failure (4) HTN (hypertension) SNOMED Code(s): 31546196 Code(s): I10 - ESSENTIAL (PRIMARY) HYPERTENSION Current Visit: Yes Qualifiers: Hypertension type: essential hypertension Qualified Code(s): I10 - Essential (primary) hypertension (5) Frequent PVCs SNOMED Code(s): 86363701 Code(s): I49.3 - VENTRICULAR PREMATURE DEPOLARIZATION Current Visit: Yes Problem List Initiated/Reviewed/Updated: Yes My Orders Last 24 Hours: My Active Orders 06/19/17 14:34 Telemetry Monitoring [Cardiac Monitoring] [RC] Q8H 06/19/17 21:00 Latanoprost [Xalatan 0.005% Ophth Soln] 0 ml EYEBOTH BEDTIME Lisinopril [Prinivil] 20 mg PO BEDTIME amLODIPine [Norvasc] 10 mg PO BEDTIME 06/20/17 08:00 Timolol Maleate [Timoptic 0.5% Ophth Soln] 0 ml EYEBOTH BRK 06/21/17 05:11 BMP [BASIC METABOLIC PANEL,BMP] [CHEM] AM MAGNESIUM [CHEM] AM Plan: This 81 year old male admitted with L TKA, Hospitalist consulted for medical management of comorbidities 1. S/P L TKA: Orders per Dr. Rausch. 2. HTN: Stable. Will continue home medications of Lisinopril and Norvasc. Hold Metoprolol today due to HR in 50s, asymptomatic. May restart tomorrow 3. Hx Frequent PVCs: Asymptomatic. Supplemented with Mg and K last night, MG above 2 today and K+ at 4.0. Will monitor. VTE prophylaxis: Recommend when Ortho deems appropriate. Dispo: Ok to discharge when Ok with Ortho.
--- NOTE | 2017-06-20 10:02 | PCM48HPAN ---
Post Anesthesia Note - EVALUATION WITHIN 48HRS OF ANESTHETIC Vital Signs in Normal Range: Yes Patient Participated in Evaluation: Yes Respiratory Function Stable: Yes Airway Patent: Yes Cardiovascular Function Stable: Yes Hydration Status Stable: Yes Pain Control Satisfactory: Yes Nausea and Vomiting Control Satisfactory: Yes Mental Status Recovered: Yes - COMMENTS/OBSERVATIONS Free Text/Narrative:: Pt looking great this morning. Pt denies any pain or nausea this AM and states he had a good night. No apparent anesthesia complications.
--- NOTE | 2017-06-22 15:10 | PCM.SN ---
- Free Text/Narrative Note: Discharge summary Dressing changed prior to discharge. See discharge plan for complete list of discharge medications and instructions. Dictation #: [id number]
--- NOTE | 2017-06-23 15:27 | DISCH ---
DATE OF DISCHARGE: 06/20/2017 PRIMARY CARE PHYSICIAN: Mesha Blue ADMISSION DIAGNOSIS: Degenerative joint disease, left knee, tricompartmental. OTHER MEDICAL DIAGNOSES: 1. Hypertension. 2. Frequent premature ventricular contractions. DISCHARGE DIAGNOSES: 1. Status post left total knee arthroplasty. 2. Hypertension. 3. Frequent premature ventricular contractions. BRIEF HISTORY: Danae is an 81-year-old male who has had complaints of progressive left knee pain. He has previously undergone a right total knee arthroplasty, and has done well. Due to his lack of response to conservative treatment, surgical intervention was recommended at that time. Operation was left total knee arthroplasty. HOSPITAL COURSE: Pain was controlled with a combination of IV and p.o. pain medications. The patient was given 2 doses of Ancef postoperatively for 24 hours of antibiotic coverage. He was followed by Hospitalist and Physical Therapy during his hospital stay. Upon discharge, the patient's vital signs were stable and he was afebrile. Hemoglobin on the day of discharge was 12.1. Aspirin 325 mg p.o. b.i.d. was started on postoperative day #1 for DVT prophylaxis. Pain is currently controlled with oral pain medications only. He is tolerating oral intake and ambulating with wheeled walker. He feels comfortable with discharge to home today. DISCHARGE MEDICATIONS: 1. Tylenol 500 mg. 2. Aspirin 325 mg. 3. Colace 100 mg. 4. Oxycodone 5 mg. DISCHARGE INSTRUCTIONS: 1. The patient will follow up in the clinic on June 29, 2017. This appointment has been made for the patient. 2. Outpatient physical therapy 2 to 3 times per week for 4 to 6 weeks. 3. [facility] to the left knee. 4. MAXIMO hose to bilateral lower extremities, on in the morning and off in the evening. For complete medication reconciliation and discharge instructions, please refer to the patient's EHR. If the patient has questions or concerns prior to discharge, he may call the clinic. DICTATED BY: Raymond French PA-C is dictating for MD KELLE Diaz / MARCOS /[id number]
== END 2017-06-20 13:30 | disposition home or self-care (01) | DRG 470 ==
LOC: MW.MS 06-19 10:33
PROVIDERS: ADMIT Orthopaedic Surgery; ATTEND Orthopaedic Surgery
PROC: 0SRD0J9 Replacement of Left Knee Joint with Synthetic Substitute, Cemented, Open Approach (ICD-10-PCS; principal; 2017-06-19)
DX: M17.12 Unilateral primary osteoarthritis, left knee (principal); I50.20 Unspecified systolic (congestive) heart failure; M21.162 Varus deformity, not elsewhere classified, left knee; M25.762 Osteophyte, left knee; I25.10 Atherosclerotic heart disease of native coronary artery without angina pectoris; I49.3 Ventricular premature depolarization; I10 Essential (primary) hypertension; Z88.8 Allergy status to other drugs, medicaments and biological substances; Z79.899 Other long term (current) drug therapy; Z87.891 Personal history of nicotine dependence
CPT/HCPCS: 01402; 36415; 73560-26-LT; 73560-LT; 80048; 80053; 83735; 85014; 85018; 85025; 86850; 86900; 86901; 88304; 88311; 97110-GP; 97161-GP; A9270-GY; C1713; C1776; J0171; J0690; J0735; J1885; J2250; J2405; J2704; J2795; J3010; J3475; J7050; J7120

== ENCOUNTER 2017-06-26 11:55 | Observation (INO) | payer MEDICARE, OTHER ==
[2017-06-26] MEDS ORDERED: Sodium Chloride 0.9% 10 ML Syringe FLUSH PRN (12:03)
[2017-06-26] MEDS ORDERED: HYDROmorphone 1 MG/ML Syringe IM PRN (12:03)
[2017-06-26] MEDS ORDERED: Sodium Chloride 0.9% 2.5 ML Syringe FLUSH PRN (12:03)
[2017-06-26 12:43] LABS: CHLORIDE,CL 103 mmol/L (98-110); SODIUM,NA 136 mmol/L (136-146)
[2017-06-26] MEDS ORDERED: HYDROmorphone 1 MG/ML Syringe IV PRN (13:12)
--- NOTE | 2017-06-26 13:18 | CR ---
EXAMINATION: Left knee HISTORY: Pain COMPARISON: 06/19/2017 TECHNIQUE: 3 views FINDINGS/IMPRESSION: Left total knee hardware is noted in stable position and alignment. Postoperativ e soft tissue changes are again demonstrated. No definite acute findings.
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
[2017-06-26] MEDS ORDERED: DAPTOmycin 500 MG Vial IVPUSH SCH (14:45)
--- NOTE | 2017-06-26 14:45 | US ---
ULTRASOUND EXAMINATION OF the left lower extremity WITH DOPPLER HISTORY: Rule out DVT FINDINGS: Examination of the left leg was performed from the groin to the calf region. All visualized segments including common femoral, proximal greater saphenous, superficial femoral, popliteal and calf veins appear patent with good compressibility and augmentation. There is no evidence of deep vein thrombos is. There is however suboptimal visualization of calf veins. IMPRESSION: No evidence of a DVT.
[2017-06-26] MEDS: Acetaminophen/HYDROcodone 325-10 MG Tab PO PRN ×2 (14:51→21:11)
[2017-06-26] MEDS ORDERED: DAPTOmycin 500 MG in Sodium Chloride 0.9% 10 ML IV SCH (15:00)
[2017-06-26] MEDS: Lactated Ringers 1,000 ML IV SCH (16:33)
[2017-06-26] MEDS ORDERED: Lisinopril 10 MG Tab PO SCH (21:00)
[2017-06-26] MEDS ORDERED: Latanoprost 0.005% Ophth Soln 2.5 ML Bottle EYEBOTH SCH (21:00)
[2017-06-26] MEDS ORDERED: Docusate Sodium 100 MG Cap PO SCH (21:00)
[2017-06-26] MEDS ORDERED: amLODIPine 5 MG Tab PO SCH (21:00)
[2017-06-26] MEDS ORDERED: Aspirin 325 MG Tab PO SCH (21:00)
[2017-06-27] MEDS: Acetaminophen/HYDROcodone 325-10 MG Tab PO PRN (00:25)
[2017-06-27] MEDS: Lactated Ringers 1,000 ML IV SCH (04:02)
[2017-06-27] MEDS ORDERED: Timolol Maleate 0.5% Ophth Soln 15 ML Bottle EYEBOTH SCH (08:00)
[2017-06-27] MEDS ORDERED: Metoprolol Succinate 25 MG Tab.ER PO SCH (09:00)
[2017-06-27 13:15] VITALS: BP 137/66
[2017-06-27 15:07] LABS: CHLORIDE,CL 105 mmol/L (98-110); SODIUM,NA 139 mmol/L (136-146)
--- NOTE | 2017-06-27 17:39 | PCM.SURGPN ---
- General Info Date of Service: 06/27/17 Date of Surgery/Procedure: 06/19/17 POD#: 8 Functional Status: Reports: Pain Controlled, Tolerating Diet, Ambulating, Urinating - Review of Systems General: Reports: No Symptoms. Denies: Fever Pulmonary: Reports: No Symptoms Cardiovascular: Reports: No Symptoms Gastrointestinal: Reports: No Symptoms Musculoskeletal: Reports: Leg Pain Systems Review Comment:: pt up ambulating this morning states pain better controlled with [place] 10/325, no metallic taste less leg pain today no specific concerns would like to go home today - Patient Data Vitals - Most Recent: Last Vital Signs Temp 98.1 F 06/27/17 12:00 Pulse 68 06/27/17 12:00 Resp 18 06/27/17 12:00 BP 137/66 06/27/17 12:00 Pulse Ox 97 06/27/17 12:00 Weight - Most Recent: 102.4 kg I&O - Last 24 Hours: Intake & Output 06/27/17 06/27/17 06/27/17 06:59 14:59 22:59 Intake Total 500 Balance 500 Med Orders - Current: Current Medications Hydrocodone Bitart/Acetaminophen ([place] 325-10 Mg) 1 - 2 tab PO Q4H PRN PRN Reason: Pain Last Admin: 06/27/17 00:25 Dose: 2 tab Amlodipine Besylate (Norvasc) 10 mg PO BEDTIME [facility] Last Admin: 06/26/17 21:05 Dose: 10 mg Aspirin (Aspirin) 325 mg PO BID [facility] Last Admin: 06/26/17 21:05 Dose: 325 mg Docusate Sodium (Colace) 100 mg PO BID [facility] Last Admin: 06/26/17 21:06 Dose: 100 mg Hydromorphone HCl (Dilaudid) 1 mg IV Q3H PRN PRN Reason: pain Last Admin: 06/26/17 13:29 Dose: 1 mg Lactated Ringer's (Ringers, Lactated) 1,000 mls @ 125 mls/hr IV ASDIRECTED [facility] Last Admin: 06/27/17 04:02 Dose: 125 mls/hr Daptomycin 500 mg/ Sodium (Chloride) 10 mls @ 200 mls/hr IV Q24H [facility] Last Admin: 06/26/17 16:33 Dose: 200 mls/hr Latanoprost (Xalatan 0.005% Ophth Soln) 2.5 ml EYEBOTH BEDTIME [facility] Last Admin: 06/26/17 21:36 Dose: 1 drop Lisinopril (Prinivil) 20 mg PO BEDTIME [facility] Last Admin: 06/26/17 21:05 Dose: 20 mg Metoprolol Succinate (Toprol Xl) 25 mg PO DAILY [facility] Sodium Chloride (Saline Flush) 10 ml FLUSH ASDIRECTED PRN PRN Reason: Keep Vein Open Sodium Chloride (Saline Flush) 2.5 ml FLUSH ASDIRECTED PRN PRN Reason: Keep Vein Open Timolol Maleate (Timoptic 0.5% Ophth Soln) 1 ml EYEBOTH BRK SHO Discontinued Medications Daptomycin (Cubicin) 500 mg IVPUSH Q24H [facility] Hydromorphone HCl (Dilaudid) 1 mg IM ONETIME PRN PRN Reason: pain - Exam Wound/Incisions: Healing Well, Erythema Improving. No: Drainage General: Alert, Oriented Extremities: Pedal Edema (exam LLE - erythema improving, still 2-3+ edema to LLE , at/ehl/gastroc 5/5, dp 2+, sensation intact distally), Other Physical Findings Comment:: vss, afeb WBC decreased to 11.60 ESR decreased to 88 CRP pending - Problem List Review Problem List Initiated/Reviewed/Updated: Yes - My Orders Last 24 Hours: Active Orders 24 hr Category Date Time Status Regular Diet [DIET] Diet 06/26/17 Dinner Active BASIC METABOLIC PANEL,BMP [CHEM] Routine Lab 06/27/17 06:00 Ordered C-REACTIVE PROTEIN [CHEM] Routine Lab 06/27/17 06:00 Ordered CBC WITH AUTO DIFF [HEME] Routine Lab 06/27/17 06:00 Ordered CULTURE BLOOD [BC] Stat Lab 06/26/17 15:39 Received CULTURE BLOOD [BC] Stat Lab 06/26/17 15:48 Received SEDIMENTATION RATE AUTO [HEME] Routine Lab 06/27/17 06:00 Ordered Aspirin Med 06/26/17 21:00 Active 325 mg PO BID DAPTOmycin [Cubicin] 500 mg Med 06/26/17 15:00 Active Sodium Chloride 0.9% [Normal Saline] 10 ml IV Q24H Docusate Sodium [Colace] Med 06/26/17 21:00 Active 100 mg PO BID Lactated Ringers [Ringers, Lactated] 1,000 ml Med 06/26/17 15:00 Active IV ASDIRECTED Latanoprost [Xalatan 0.005% Ophth Soln] Med 06/26/17 21:00 Active 2.5 ml EYEBOTH BEDTIME Lisinopril [Prinivil] Med 06/26/17 21:00 Active 20 mg PO BEDTIME Metoprolol Succinate [Toprol XL] Med 06/27/17 09:00 Active 25 mg PO DAILY Timolol Maleate [Timoptic 0.5% Ophth Soln] Med 06/27/17 08:00 Active 1 ml EYEBOTH BRK amLODIPine [Norvasc] Med 06/26/17 21:00 Active 10 mg PO BEDTIME Blood Culture x2 Reflex Set [OM.PC] Stat Oth 06/26/17 14:48 Ordered Medication Orders Hydrocodone Bitart/Acetaminophen ([place] 325-10 Mg) 1 - 2 tab PO Q4H PRN PRN Reason: Pain Last Admin: 06/27/17 00:25 Dose: 2 tab Admin: 06/26/17 21:11 Dose: 2 tab Admin: 06/26/17 14:51 Dose: 2 tab Amlodipine Besylate (Norvasc) 10 mg PO BEDTIME [facility] Last Admin: 06/26/17 21:05 Dose: 10 mg Aspirin (Aspirin) 325 mg PO BID [facility] Last Admin: 06/26/17 21:05 Dose: 325 mg Docusate Sodium (Colace) 100 mg PO BID [facility] Last Admin: 06/26/17 21:06 Dose: 100 mg Hydromorphone HCl (Dilaudid) 1 mg IV Q3H PRN PRN Reason: pain Last Admin: 06/26/17 13:29 Dose: 1 mg Lactated Ringer's (Ringers, Lactated) 1,000 mls @ 125 mls/hr IV ASDIRECTED [facility] Last Admin: 06/27/17 04:02 Dose: 125 mls/hr Infusion: 06/27/17 00:33 Dose: 125 mls/hr Admin: 06/26/17 16:33 Dose: 125 mls/hr Daptomycin 500 mg/ Sodium (Chloride) 10 mls @ 200 mls/hr IV Q24H [facility] Last Admin: 06/26/17 16:33 Dose: 200 mls/hr Latanoprost (Xalatan 0.005% Ophth Soln) 2.5 ml EYEBOTH BEDTIME [facility] Last Admin: 06/26/17 21:36 Dose: 1 drop Lisinopril (Prinivil) 20 mg PO BEDTIME [facility] Last Admin: 06/26/17 21:05 Dose: 20 mg Metoprolol Succinate (Toprol Xl) 25 mg PO DAILY [facility] Sodium Chloride (Saline Flush) 10 ml FLUSH ASDIRECTED PRN PRN Reason: Keep Vein Open Sodium Chloride (Saline Flush) 2.5 ml FLUSH ASDIRECTED PRN PRN Reason: Keep Vein Open Timolol Maleate (Timoptic 0.5% Ophth Soln) 1 ml EYEBOTH BRK SHO - Assessment Assessment (Free Text/Narrative):: POD#8 L TKA LLE cellulitis LLE edema - Plan Plan (Free Text/Narrative):: continue IV cubicin PT today activity as tolerated will d/ch to home after PM cubicin
== END 2017-06-27 16:20 | disposition home or self-care (01) ==
LOC: MW.ED 11:55 → MW.MS 13:29
PROVIDERS: ADMIT Orthopaedic Surgery; ATTEND Orthopaedic Surgery
DX: L03.116 Cellulitis of left lower limb (principal); R60.0 Localized edema; I10 Essential (primary) hypertension; I25.10 Atherosclerotic heart disease of native coronary artery without angina pectoris; M81.0 Age-related osteoporosis without current pathological fracture; E66.9 Obesity, unspecified; Z68.31 Body mass index [BMI] 31.0-31.9, adult; Z79.899 Other long term (current) drug therapy; Z87.891 Personal history of nicotine dependence; Z88.5 Allergy status to narcotic agent; Z96.652 Presence of left artificial knee joint; Z98.49 Cataract extraction status, unspecified eye; Z98.52 Vasectomy status; Z98.890 Other specified postprocedural states
CPT/HCPCS: 36415; 73562; 80048; 85025; 85652; 86140; 87040; 93971; 99285; A9270; J0878; J1170; J7120; 96361; 96374; 96375; G0378